=== PATIENT | male | born 1955 | race Caucasian/White ===

== ENCOUNTER → 2023-05-22 01:03 | Outpatient (CLI) | payer MEDICARE, SELFPAY ==
--- NOTE | 2023-05-22 | DI.US_ITS ---
Exam(s) US ABDOMEN EXAM: US ABDOMEN CLINICAL HISTORY: EDVIN-UMBILICAL ABD PAIN,R10.33,? BILIARY OR HERNIA ETIOLOGY TECHNIQUE: Ultrasound abdomen performed using standard protocol. COMPARISON: No exams were available for comparison FINDINGS: ABDOMINAL AORTA AND IVC: Visualized portions normal caliber. PANCREAS: Normal where visualized. LIVER: The liver has a coarsened echotexture. There is increased echogenicity of the liver consisten t with fatty infiltration. The liver measures 16 cm long. There are few hepatic cysts present. The largest is in the right lobe measures 3 x 1.8 x 2.9 cm. Hepatopetal flow in the Portal Vein. There is a round 0.5 x 0.4 x 0.5 cm lesion in the right inferior lobe. It shows peripheral echogenicity. GALLBLADDER:No evidence of cholelithiasis. No evidence of wall thickening. No pericholecystic fluid i dentified. BILIARY SYSTEM: Common bile duct measures < 7 mm. No intrahepatic biliary ductal dilation. ARANGO'S SIGN: Negative. KIDNEYS: Kidneys are symmetric in size. No evidence of renal calculi. No evidence of hydronephrosis. No renal mass or cyst identified. SPLEEN: Not enlarged. ASCITES: None seen. There is no sonographic evidence of a hernia in the umbilical region. IMPRESSION: 1. No sonographic evidence of umbilical hernia. 2. Multiple hepatic cysts. The largest is in the right lobe measures 3 x 1.8 x 2.9 cm. 3. Peripherally echogenic lesion in the right lobe of the liver. Correlation with MRI examination is recommended. Unexpected findings DATA REPOSITORY:
== END ==
PROVIDERS: Visit Provider Physician Assistant
DX: R10.33 Periumbilical pain (principal); K76.0 Fatty (change of) liver, not elsewhere classified; K76.89 Other specified diseases of liver
CPT/HCPCS: 76700